=== PATIENT | male | born 1995 ===

== ENCOUNTER 2021-07-09 18:09 | Emergency (ER) | payer SELFPAY ==
[~2021-07-09] VITALS: Ht 165.1 cm; Wt 90.9 kg
[2021-07-09 18:30] VITALS: BP 115/80; TEMP 97.8
[2021-07-09] MEDS ORDERED: NORCO 325 MG-51 TAB PO ×2 (20:08)
[2021-07-09 20:19] VITALS: PULSE 74
[2021-07-10] MEDS ORDERED: NORCO 325 MG-51 TAB PO (13:45)
== END 2021-07-09 20:22 | disposition home or self-care (01) ==
LOC: COL.ER 18:09
DX: S63.264A Dislocation of metacarpophalangeal joint of right ring finger, initial encounter (principal); S63.266A Dislocation of metacarpophalangeal joint of right little finger, initial encounter; W10.8XXA Fall (on) (from) other stairs and steps, initial encounter